=== PATIENT | male | born 1940 | race Caucasian/White ===

== ENCOUNTER 2018-03-09 07:29 | Outpatient (CLI) | payer MEDICARE, OTHER | END 2018-03-09 07:30 | disposition critical access hospital (66) | LOC: EMS 07:29 | PROVIDERS: ATTEND Surgery | DX: R06.00 Dyspnea, unspecified (principal); R51 Headache; R42 Dizziness and giddiness | CPT/HCPCS: A0425; A0429 ==

== ENCOUNTER 2018-03-09 07:57 | Emergency (ER) | payer MEDICARE, OTHER ==
--- NOTE | 2018-03-09 09:41 | ED Physician Documentation ---
PD HPI DYSPNEA - Stated complaint Stated Complaint: SOA - Chief complaint Chief Complaint: Resp - History obtained from History obtained from: Patient, EMS - History of Present Illness Timing - onset: Today Improved by: O2 Similar symptoms before: Has not had sx before - Treatment prior to arrival Treatment prior to arrival: Medics administered high flow oxygen by face mask. - Additional information Additional information: The patient is a 77-year-old male who presents via ambulance after carbon monoxide exposure this morning. With electricity being out, he was running a generator inside his garage. Although he had the garage door open the exhaust was apparently getting into his house. This morning he began feeling dizzy, short of breath, and felt like blacking out. He called his daughter, who called 911. Medics found the patient to have a high carbon monoxide level of 35%. They placed him on high flow oxygen by nonrebreather facemask, and by the time of his arrival in the emergency department his carboxyhemoglobin measurement is down to 16%. The patient already feels subjectively much improved. He denies headache or nausea. Review of Systems Constitutional: denies: Fever Eyes: denies: Decreased vision Nose: denies: Congestion Throat: denies: Sore throat Cardiac: denies: Chest pain / pressure Respiratory: denies: Cough GI: denies: Abdominal Pain, Nausea, Vomiting Skin: denies: Rash Musculoskeletal: denies: Extremity pain Neurologic: denies: Focal weakness, Numbness, Headache PD PAST MEDICAL HISTORY - Past Medical History Cardiovascular: Hypertension, Atrial fibrillation Respiratory: Pneumonia Endocrine/Autoimmune: None GI: Colon polyps : None HEENT: None Psych: Claustrophobia Musculoskeletal: Osteoarthritis Derm: None - Past Surgical History Past Surgical History: Yes General: Colonoscopy Ortho: Hip replacement, ACL reconstruction, Arthroscopic surgery, Carpal Tunnel surgery - Present Medications Home Medications: Ambulatory Orders Medication Instructions Recorded Confirmed Aspirin [Children's Aspirin] 09/21/12 09/21/12 - Allergies Allergies/Adverse Reactions: Allergies Allergy/AdvReac Type Severity Reaction Status Date / Time No Known Drug Allergies Allergy Verified 03/09/18 08:07 - Social History Does the pt smoke?: No Smoking Status: Former smoker Does the pt drink ETOH?: No Does the pt have substance abuse?: No - Immunizations Immunizations are current?: Yes - POLST Patient has POLST: No PD ED PE NORMAL - Vitals Vital signs reviewed: Yes (initially hypertensive.) - General General: Alert and oriented X 3, Well developed/nourished - HEENT HEENT: Atraumatic, EOMI, Pharynx benign - Neck Neck: Supple, no meningeal sign, No adenopathy, No JVD - Cardiac Cardiac: RRR, No murmur - Respiratory Respiratory: No respiratory distress, Clear bilaterally - Abdomen Abdomen: Soft, Non tender - Back Back: No CVA TTP - Derm Derm: No rash - Extremities Extremities: No edema, No calf tenderness / cord - Neuro Neuro: Alert and oriented X 3, No motor deficit, No sensory deficit Results - Vitals Vitals: Oxygen O2 Source Room air - Labs Labs: Laboratory Tests 03/09/18 09:11 VBG Total Hgb 15.6 VBG Oxyhemoglobin 67 L VBG Carboxyhemoglobin 14.6 H VBG Methemoglobin 0.0 PD MEDICAL DECISION MAKING - ED course Complexity details: reviewed results, re-evaluated patient, considered differential, d/w patient, d/w family ED course: The patient's presentation is most consistent with carbon monoxide exposure. Hispresentationthereisnoclinicalindicationforhyperbaricoxygentreatment.Treatmentintheemergencydepartmentincludedadministrationofhighflowoxygenbynonrebre atherfacemask, for a period of nearly 2 hours. Carboxyhemoglobin level measured on venous blood gas is elevated at 14.6, which is significantly improved from the initial measurement obtained by paramedics, and is below the 20% threshold that would warn consideration of hyperbaric oxygen therapy. I discussed with him and his family potentially worrisome signs or symptoms that should prompt reevaluation in the emergency department. Departure - Departure Disposition: 01 Home, Self Care Clinical Impression: Carbon monoxide poisoning Qualifiers: Encounter type: initial encounter Injury intent: accidental or unintentional Qualified Code(s): T58.91XA - Toxic effect of carbon monoxide from unspecified source, accidental (unintentional), initial encounter Condition: Stable Instructions: ED CO Poisoning Follow-Up: Albert Jeffers MD [Primary Care Provider] - Comments: Avoid running or generator in an posed space. Return to the emergency department if you develop increasing headache, persistent nausea or vomiting, or otherwise worsening symptoms. Discharge Date/Time: 03/09/18 09:55
[2018-03-09 11:59] VITALS: BP 127/72
== END 2018-03-09 09:55 | disposition home or self-care (01) ==
LOC: EDUNIT# → ED 07:57
DX: T58.8X1A Toxic effect of carbon monoxide from other source, accidental (unintentional), initial encounter (principal); R55 Syncope and collapse; R42 Dizziness and giddiness; R06.02 Shortness of breath; Y92.008 Other place in unspecified non-institutional (private) residence as the place of occurrence of the external cause; I10 Essential (primary) hypertension; Z86.79 Personal history of other diseases of the circulatory system
CPT/HCPCS: 36415; 82375; 99283

== ENCOUNTER 2020-05-06 08:00 | Outpatient (CLI) | payer MEDICARE, OTHER ==
[2020-05-06 18:21] LABS: BASOPHILS % (AUTO) 0.4 %; EOSINOPHILS # (AUTO) 0.1 10^3/uL (0.0-0.7); EOSINOPHILS % (AUTO) 1.9 %; HGB - HEMOGLOBIN 14.3 g/dL (14.0-18.0); LYMPHOCYTES # (AUTO) 1.5 10^3/uL (1.5-3.5); LYMPHOCYTES % (AUTO) 21.8 %; MEAN CORPUSCULAR HEMOGLOBIN 29.9 pg (27.0-31.0); MEAN CORPUSCULAR HGB CONC 31.5 g/dL (32.0-36.0); MEAN CORPUSCULAR VOLUME 94.8 fL (80.0-94.0); MEAN PLATELET VOLUME 10.6 fL (7.4-11.4); MONOCYTES # (AUTO) 0.6 10^3/uL (0.0-1.0); MONOCYTES % (AUTO) 8.3 %; NEUTROPHILS # (AUTO) 4.6 10^3/uL (1.5-6.6); NEUTROPHILS % (AUTO) 67.3 %; PLT - PLATELET COUNT 184 10^3/uL (130-450); RED BLOOD COUNT 4.79 10^6/uL (4.70-6.10); RED CELL DISTRIBUTION WIDTH 14.7 % (12.0-15.0); WHITE BLOOD COUNT 6.8 x10^3/uL (4.8-10.8)
[2020-05-06 18:39] LABS: ALBUMIN 4.5 g/dL (3.2-5.5); ALBUMIN/GLOBULIN RATIO 1.3 (1.0-2.2); ALKALINE PHOSPHATASE 65 IU/L (42-121); ALT ALANINE AMINOTRANSFERASE 15 IU/L (10-60); AST ASPARTATE AMINOTRANSFERASE 15 IU/L (10-42); BILIRUBIN,TOTAL 1.2 mg/dL (0.2-1.0); BUN - BLOOD UREA NITROGEN 26 mg/dL (6-20); CALCIUM 9.5 mg/dL (8.5-10.3); CARBON DIOXIDE - CO2 23 mmol/L (21-32); CHLORIDE 102 mmol/L (101-111); CHOL/HDL RATIO 4.6 (<5.0); CHOLESTEROL 185 mg/dL; CREATININE 1.3 mg/dL (0.6-1.2); GLUCOSE 122 mg/dL (70-100); HDL CHOLESTEROL 40 mg/dL; LDL CHOLESTEROL,CALCULATED 111 mg/dL; LDL/HDL RATIO 2.8 (<3.6); TOTAL PROTEIN 7.9 g/dL (6.7-8.2); VLDL CHOLESTEROL 34 mg/dL
== END 2020-05-06 23:59 | disposition home or self-care (01) ==
LOC: LAB.WCP 08:00
PROVIDERS: ATTEND Internal Medicine
DX: I10 Essential (primary) hypertension (principal); I49.9 Cardiac arrhythmia, unspecified; Z12.5 Encounter for screening for malignant neoplasm of prostate; J45.909 Unspecified asthma, uncomplicated
CPT/HCPCS: 36415; 80053; 80061; 84443; 85025; G0103; 83721; 84153

== ENCOUNTER 2020-08-10 08:00 | Outpatient (CLI) | payer MEDICARE, OTHER ==
[2020-08-10 12:04] LABS: CREATININE,URINE 179.6 mg/dL; MICROALBUM/CREATININE RATIO,UR 30.1 ug/mg (<30.0); MICROALBUMIN,URINE 5.4 mg/dL (0-300.0)
[2020-08-10 12:36] LABS: BUN - BLOOD UREA NITROGEN 32 mg/dL (6-20); CALCIUM 9.2 mg/dL (8.5-10.3); CARBON DIOXIDE - CO2 25 mmol/L (21-32); CHLORIDE 104 mmol/L (101-111); CHOL/HDL RATIO 4.7 (<5.0); CHOLESTEROL 174 mg/dL; CREATININE 1.4 mg/dL (0.6-1.2); GFR - MDRD 49 (>89); GLUCOSE 118 mg/dL (70-100); HDL CHOLESTEROL 37 mg/dL; LDL CHOLESTEROL,CALCULATED 116 mg/dL; LDL/HDL RATIO 3.1 (<3.6); POTASSIUM 4.6 mmol/L (3.5-5.0); SODIUM 136 mmol/L (135-145); TRIGLYCERIDES 105 mg/dL; VLDL CHOLESTEROL 21 mg/dL
[2020-08-10 12:45] LABS: PSA FREE 0.689 ng/mL (0.16-2.81)
[2020-08-10 12:46] LABS: PSA TOTAL 3.066 ng/mL (0.000-2.000)
[2020-08-10 12:59] LABS: ESTIMATED AVERAGE GLUCOSE 126 mg/dL (70-100)
== END 2020-08-10 23:59 | disposition home or self-care (01) ==
LOC: LAB.WCP 08:00
PROVIDERS: ATTEND Internal Medicine
DX: R73.01 Impaired fasting glucose (principal); R97.20 Elevated prostate specific antigen [PSA]; E78.5 Hyperlipidemia, unspecified
CPT/HCPCS: 36415; 80048; 80061; 82043; 82570; 83036; 83721; 84153; 84154

== ENCOUNTER 2021-03-27 08:51 | Outpatient (CLI) | payer MEDICARE, OTHER | END 2021-03-27 08:52 | disposition EMS.NT | LOC: EMS 08:51 | DX: R04.0 Epistaxis (principal) ==

== ENCOUNTER 2021-03-27 09:52 | Emergency (ER) | payer MEDICARE, OTHER ==
[2021-03-27] MEDS ORDERED: OXYMETAZOLINE HCL 100 SPRAYS BOTTLE NAS STA (10:15)
--- NOTE | 2021-03-27 10:15 | ED Physician Documentation ---
PD HPI HEENT - Stated complaint Stated Complaint: NOSE BLEED - Chief complaint Chief Complaint: Heent - History obtained from History obtained from: Patient - History of Present Illness Timing - onset: How many hours ago (2), Today Timing - duration: Hours (2) Timing - details: Abrupt onset, Waxing and waning Location: Nose (left side nare.) Associated symptoms: Other (denies blood thinners.). No: Fever, Congestion, Facial swelling, Headache Similar symptoms before: Has not had sx before Review of Systems Constitutional: denies: Fever, Chills Nose: denies: Rhinorrhea / runny nose, Congestion Throat: denies: Sore throat Respiratory: denies: Cough Endocrine: denies: Easy bruising / bleeding PD PAST MEDICAL HISTORY - Past Medical History Cardiovascular: Hypertension, Atrial fibrillation Respiratory: Pneumonia Endocrine/Autoimmune: None GI: Colon polyps : None HEENT: None Psych: Claustrophobia Musculoskeletal: Osteoarthritis Derm: None - Past Surgical History Past Surgical History: Yes General: Colonoscopy Ortho: Hip replacement, ACL reconstruction, Arthroscopic surgery, Carpal Tunnel surgery - Present Medications Home Medications: Ambulatory Orders Medication Instructions Recorded Confirmed Lisinopril [Zestril] 10 mg PO DAILY 03/27/21 03/27/21 - Allergies Allergies/Adverse Reactions: Allergies Allergy/AdvReac Type Severity Reaction Status Date / Time No Known Drug Allergies Allergy Verified 03/27/21 10:04 - Social History Does the pt smoke?: No Smoking Status: Former smoker Does the pt drink ETOH?: No Does the pt have substance abuse?: No - Immunizations Immunizations are current?: Yes - POLST Patient has POLST: No PD ED PE NORMAL - Vitals Vital signs reviewed: Yes - General General: Alert and oriented X 3, No acute distress, Well developed/nourished - HEENT HEENT: Other (right nare appears normal. left side with mainly normal mucosa with single point of raisde vessel and inflammation. Minimal bleeding right now. No erosions. ) - Neck Neck: Supple, no meningeal sign, No adenopathy Results - Vitals Vitals: Vital Signs - 24 hr 03/27/21 03/27/21 09:58 11:07 Temperature 36.5 C 36.5 C Heart Rate 76 74 Respiratory 16 16 Rate Blood Pressure 137/80 H 138/79 H O2 Saturation 99 99 Oxygen O2 Source Room air Procedures - Epistaxis Site: Left, Anterior Preparation: Afrin, Clamp / pressure applied Treatment: Silver Nitrate, Packing inserted Other: Observed - no bleeding, Pt tolerated well PD MEDICAL DECISION MAKING - ED course Complexity details: considered differential (nasal mucosa generally appears good, with just focal vessel inflammed left medial wall. ), d/w patient Departure - Departure Disposition: 01 Home, Self Care Clinical Impression: Acute anterior epistaxis Condition: Stable Record reviewed to determine appropriate education?: Yes Instructions: ED Nasal Packing Anterior Removable Comments: Leave the packing in the nostril through the day today and into tomorrow morning if tolerable. At that point you can gently remove it after moisturizing it and gently pulling out. If you have recurrent bleeding today, pinch the nose for 10 to 20 minutes and see if it stops. If still persisting, return to the ER. If no further bleeding and you are doing well after the packing removal, no particular follow-up is needed. Discharge Date/Time: 03/27/21 11:08
[2021-03-27] MEDS ORDERED: SILVER NITRATE APPLICATOR TOP STA (10:29)
[2021-03-27 11:08] VITALS: BP 138/79
== END 2021-03-27 11:08 | disposition home or self-care (01) ==
LOC: ED 09:52
DX: R04.0 Epistaxis (principal); Z87.891 Personal history of nicotine dependence
CPT/HCPCS: 30901; 99282; A9270

== ENCOUNTER 2021-08-02 11:02 | Outpatient (CLI) | payer MEDICARE, OTHER ==
[2021-08-02 18:17] LABS: BASOPHILS % (AUTO) 0.5 %; EOSINOPHILS # (AUTO) 0.1 10^3/uL (0.0-0.7); EOSINOPHILS % (AUTO) 1.8 %; HCT - HEMATOCRIT 46.8 % (42.0-52.0); LYMPHOCYTES # (AUTO) 1.8 10^3/uL (1.5-3.5); LYMPHOCYTES % (AUTO) 28.9 %; MEAN CORPUSCULAR HEMOGLOBIN 30.7 pg (27.0-31.0); MEAN CORPUSCULAR HGB CONC 32.1 g/dL (32.0-36.0); MEAN CORPUSCULAR VOLUME 95.7 fL (80.0-94.0); MEAN PLATELET VOLUME 11.2 fL (7.4-11.4); MONOCYTES # (AUTO) 0.6 10^3/uL (0.0-1.0); MONOCYTES % (AUTO) 10.6 %; NEUTROPHILS # (AUTO) 3.5 10^3/uL (1.5-6.6); NEUTROPHILS % (AUTO) 57.5 %; PLT - PLATELET COUNT 159 10^3/uL (130-450); RED BLOOD COUNT 4.89 10^6/uL (4.70-6.10); RED CELL DISTRIBUTION WIDTH 14.2 % (12.0-15.0); WHITE BLOOD COUNT 6.1 x10^3/uL (4.8-10.8)
[2021-08-02 18:35] LABS: CREATININE,URINE 113.1 mg/dL; MICROALBUM/CREATININE RATIO,UR 55.7 ug/mg (<30.0); MICROALBUMIN,URINE 6.3 mg/dL (0-300.0)
[2021-08-02 18:36] LABS: ALBUMIN 4.5 g/dL (3.2-5.5); ALBUMIN/GLOBULIN RATIO 1.4 (1.0-2.2); ALKALINE PHOSPHATASE 48 IU/L (42-121); ALT ALANINE AMINOTRANSFERASE 20 IU/L (10-60); AST ASPARTATE AMINOTRANSFERASE 18 IU/L (10-42); BILIRUBIN,TOTAL 0.8 mg/dL (0.2-1.0); BUN - BLOOD UREA NITROGEN 31 mg/dL (6-20); CALCIUM 9.4 mg/dL (8.5-10.3); CARBON DIOXIDE - CO2 25 mmol/L (21-32); CHLORIDE 102 mmol/L (101-111); CHOL/HDL RATIO 5.6 (<5.0); CHOLESTEROL 207 mg/dL; CREATININE 1.4 mg/dL (0.6-1.2); GFR - MDRD 49 (>89); GLUCOSE 115 mg/dL (70-100); HDL CHOLESTEROL 37 mg/dL; LDL CHOLESTEROL,CALCULATED 129 mg/dL; LDL/HDL RATIO 3.5 (<3.6); POTASSIUM 5.1 mmol/L (3.5-5.0); SODIUM 136 mmol/L (135-145); TOTAL PROTEIN 7.7 g/dL (6.7-8.2); TRIGLYCERIDES 205 mg/dL; VLDL CHOLESTEROL 41 mg/dL
[2021-08-02 18:46] LABS: THYROID STIMULATING HORMONE 2.14 uIU/mL (0.34-5.60)
[2021-08-02 20:15] LABS: ESTIMATED AVERAGE GLUCOSE 131 mg/dL (70-100); HEMOGLOBIN A1c% 6.2 % (4.27-6.07)
== END 2021-08-02 11:03 | disposition home or self-care (01) ==
LOC: LAB.N 11:02
PROVIDERS: ATTEND Internal Medicine
DX: I10 Essential (primary) hypertension (principal); E78.5 Hyperlipidemia, unspecified; R73.01 Impaired fasting glucose; R97.20 Elevated prostate specific antigen [PSA]; I49.9 Cardiac arrhythmia, unspecified
CPT/HCPCS: 36415; 80053; 80061; 82043; 82570; 83036; 83721; 84153; 84443; 85025

== ENCOUNTER 2022-01-31 10:04 | Outpatient (CLI) | payer MEDICARE, OTHER ==
[2022-01-31 12:43] LABS: BUN - BLOOD UREA NITROGEN 33 mg/dL (6-20); CALCIUM 9.4 mg/dL (8.5-10.3); CARBON DIOXIDE - CO2 27 mmol/L (21-32); CHLORIDE 102 mmol/L (101-111); CHOL/HDL RATIO 5.5 (<5.0); CHOLESTEROL 177 mg/dL; CREATININE 1.4 mg/dL (0.6-1.2); GFR - MDRD 49 (>89); GLUCOSE 116 mg/dL (70-100); HDL CHOLESTEROL 32 mg/dL; LDL CHOLESTEROL,CALCULATED 116 mg/dL; LDL/HDL RATIO 3.6 (<3.6); POTASSIUM 4.8 mmol/L (3.5-5.0); SODIUM 137 mmol/L (135-145); TRIGLYCERIDES 145 mg/dL; VLDL CHOLESTEROL 29 mg/dL
[2022-01-31 14:14] LABS: ESTIMATED AVERAGE GLUCOSE 140 mg/dL (70-100); HEMOGLOBIN A1c% 6.5 % (4.27-6.07)
== END 2022-01-31 10:05 | disposition home or self-care (01) ==
LOC: LAB.N 10:04
PROVIDERS: ATTEND Internal Medicine
DX: I10 Essential (primary) hypertension (principal); E78.5 Hyperlipidemia, unspecified; R73.01 Impaired fasting glucose
CPT/HCPCS: 36415; 80048; 80061; 83036; 83721

== ENCOUNTER 2022-06-05 07:30 | Emergency (ER) | payer MEDICARE, OTHER ==
[2022-06-05] MEDS ORDERED: OXYMETAZOLINE HCL 100 SPRAYS BOTTLE NAS STA (08:57)
[2022-06-05] MEDS ORDERED: SILVER NITRATE APPLICATOR TOP STA (09:20)
--- NOTE | 2022-06-05 09:58 | ED Physician Documentation ---
PD HPI HEENT - Stated complaint Stated Complaint: NOSE BLEED - Chief complaint Chief Complaint: Heent - History obtained from History obtained from: Patient, Family - Additional information Additional information: The patient comes to the emergency department chief complaint of nosebleed from left naris that started around 530 this morning. He states it lasted for 2 hours and finally stopped on its own, but he has had this problem a couple of other times in the last 7 years and they always cauterize his nose and that seems to take care of the problem. The patient denies any trauma. No recent u pper respiratory infection, coughing, or sneezing. No allergies. He denies any other complaints at this time. He is not on anticoagulants. PD PAST MEDICAL HISTORY - Past Medical History Cardiovascular: Hypertension, Atrial fibrillation Respiratory: Pneumonia Endocrine/Autoimmune: None GI: Colon polyps : None HEENT: None Psych: Claustrophobia Musculoskeletal: Osteoarthritis Derm: None - Past Surgical History Past Surgical History: Yes General: Colonoscopy Ortho: Hip replacement, ACL reconstruction, Arthroscopic surgery, Carpal Tunnel surgery - Present Medications Home Medications: Ambulatory Orders Medication Instructions Recorded Confirmed Lisinopril [Zestril] 10 mg PO DAILY 03/27/21 06/05/22 - Allergies Allergies/Adverse Reactions: Allergies Allergy/AdvReac Type Severity Reaction Status Date / Time No Known Drug Allergies Allergy Verified 03/27/21 10:04 - Social History Does the pt smoke?: No Smoking Status: Former smoker Does the pt drink ETOH?: No Does the pt have substance abuse?: No - Immunizations Immunizations are current?: Yes - POLST Patient has POLST: No PD ED PE NORMAL - Vitals Vital signs reviewed: Yes - General General: Alert and oriented X 3, No acute distress, Well developed/nourished - HEENT HEENT: Atraumatic, PERRL, EOMI, Moist mucous membranes, Other (No active epistaxis. Mild dried bloody residue in the left naris over the septum. Tiny excoriation noted over the septal mucosa.) - Neck Neck: Supple, no meningeal sign - Respiratory Respiratory: No respiratory distress - Derm Derm: Warm and dry - Extremities Extremities: No deformity - Neuro Neuro: Alert and oriented X 3 - Psych Psych: Normal mood, Normal affect Results - Vitals Vitals: Vital Signs - 24 hr 06/05/22 07:50 Temperature 36.7 C Heart Rate 68 Respiratory 18 Rate Blood Pressure 130/84 H O2 Saturation 98 Oxygen O2 Source Room air Procedures - Epistaxis - Minor Site: Left Preparation: Afrin Treatment: Silver Nitrate Other: Observed - no bleeding, Pt tolerated well, O2 sat WNL, Referred to ENT PD Medical Decision Making - ED course Complexity details: considered differential, d/w patient, d/w family ED course: The patient did not have any further bleeding in the emergency department, but given that he had responded well to cautery previously, I did go ahead and give him Afrin and then targeted cautery with silver nitrate. The patient tolerated this well and had no further bleeding. I have given him contact information for ENT and instructions to follow-up. We have discussed the usual indications for return. Departure - Departure Disposition: 01 Home, Self Care Clinical Impression: Epistaxis Condition: Stable Instructions: ED Nosebleed Follow-Up: Jose F Sherman MD [Physician No Access] - Comments: Your bleeding had already stopped by the time he came to the emergency department today, and has not restarted again. You have been given the generic equivalent of Afrin to help cinch up your blood vessels, and you have also been cauterized with silver nitrate. There is no active bleeding currently. It is very important that you avoid anything that could restart the bleeding or tear of the cauterized area, such as blowing your nose, coughing, dabbing, sneezing, or bending over with your head down. You should avoid these things for the next week while your nose heals. You may take the Afrin spray as needed if your nose starts bleeding again. Immediately following the spray, you should hold very firm pressure/pinching for a minimum of 10 minutes without letting go. If the bleeding stops, then you may leave the nose alone. Do not try putting anything in there. If the bleeding continues, you should return to the emergency department and we will likely need to pack your nose at that time. If you have repeated problems in this regard, you will need to follow-up with the ear nose throat specialist, and we have given you contact information for their clinic.
[2022-06-05 10:07] VITALS: BP 108/74
== END 2022-06-05 10:07 | disposition home or self-care (01) ==
LOC: ED 07:30
DX: R04.0 Epistaxis (principal); Z87.891 Personal history of nicotine dependence
CPT/HCPCS: 30901; 99282; 99283

== ENCOUNTER 2022-07-25 08:05 | Outpatient (CLI) | payer MEDICARE, OTHER ==
[2022-07-25 12:55] LABS: BASOPHILS % (AUTO) 0.5 %; EOSINOPHILS # (AUTO) 0.1 10^3/uL (0.0-0.7); EOSINOPHILS % (AUTO) 2.5 %; HGB - HEMOGLOBIN 14.3 g/dL (14.0-18.0); LYMPHOCYTES # (AUTO) 1.6 10^3/uL (1.5-3.5); LYMPHOCYTES % (AUTO) 27.9 %; MEAN CORPUSCULAR HEMOGLOBIN 30.8 pg (27.0-31.0); MEAN CORPUSCULAR HGB CONC 31.8 g/dL (32.0-36.0); MEAN CORPUSCULAR VOLUME 96.8 fL (80.0-94.0); MEAN PLATELET VOLUME 11.5 fL (7.4-11.4); MONOCYTES # (AUTO) 0.6 10^3/uL (0.0-1.0); MONOCYTES % (AUTO) 11.1 %; NEUTROPHILS # (AUTO) 3.3 10^3/uL (1.5-6.6); NEUTROPHILS % (AUTO) 57.5 %; PLT - PLATELET COUNT 162 10^3/uL (130-450); RED BLOOD COUNT 4.65 10^6/uL (4.70-6.10); RED CELL DISTRIBUTION WIDTH 14.6 % (12.0-15.0); WHITE BLOOD COUNT 5.7 x10^3/uL (4.8-10.8)
[2022-07-25 13:14] LABS: ALBUMIN/GLOBULIN RATIO 1.2 (1.0-2.2); ALKALINE PHOSPHATASE 52 IU/L (42-121); ALT ALANINE AMINOTRANSFERASE 18 IU/L (10-60); AST ASPARTATE AMINOTRANSFERASE 16 IU/L (10-42); BILIRUBIN,TOTAL 0.6 mg/dL (0.2-1.0); BUN - BLOOD UREA NITROGEN 39 mg/dL (6-20); CALCIUM 9.2 mg/dL (8.5-10.3); CARBON DIOXIDE - CO2 24 mmol/L (21-32); CHLORIDE 107 mmol/L (101-111); CHOL/HDL RATIO 4.6 (<5.0); CHOLESTEROL 175 mg/dL; CREATININE 1.6 mg/dL (0.6-1.2); GFR - MDRD 42 (>89); GLUCOSE 125 mg/dL (70-100); HDL CHOLESTEROL 38 mg/dL; LDL CHOLESTEROL,CALCULATED 106 mg/dL; LDL/HDL RATIO 2.8 (<3.6); POTASSIUM 4.8 mmol/L (3.5-5.0); SODIUM 139 mmol/L (135-145); TOTAL PROTEIN 7.3 g/dL (6.7-8.2); TRIGLYCERIDES 156 mg/dL; VLDL CHOLESTEROL 31 mg/dL
[2022-07-25 14:02] LABS: ESTIMATED AVERAGE GLUCOSE 131 mg/dL (70-100); HEMOGLOBIN A1c% 6.2 % (4.27-6.07)
[2022-07-25 17:55] LABS: CREATININE,URINE 116.8 mg/dL; MICROALBUM/CREATININE RATIO,UR 27.4 ug/mg (<30.0); MICROALBUMIN,URINE 3.2 mg/dL (0-300.0)
== END 2022-07-25 08:06 | disposition home or self-care (01) ==
LOC: LAB.N 08:05
PROVIDERS: ATTEND Internal Medicine
DX: I10 Essential (primary) hypertension (principal); E78.5 Hyperlipidemia, unspecified; R73.01 Impaired fasting glucose; R97.20 Elevated prostate specific antigen [PSA]
CPT/HCPCS: 36415; 80053; 80061; 82043; 82570; 83036; 83721; 84153; 85025

== ENCOUNTER 2023-01-17 09:09 | Outpatient (CLI) | payer MEDICARE, OTHER ==
[2023-01-17 12:29] LABS: ALBUMIN 4.4 g/dL (3.2-5.5); ALBUMIN/GLOBULIN RATIO 1.6 (1.0-2.2); BILIRUBIN,TOTAL 0.4 mg/dL (0.2-1.0); CALCIUM 9.3 mg/dL (8.5-10.3); CREATININE 1.5 mg/dL (0.6-1.3); POTASSIUM 4.8 mmol/L (3.5-4.5); TOTAL PROTEIN 7.1 g/dL (6.4-8.9)
[2023-01-17 12:48] LABS: ESTIMATED AVERAGE GLUCOSE 131 mg/dL (70-100); HEMOGLOBIN A1c% 6.2 % (4.27-6.07)
== END 2023-01-17 09:10 | disposition home or self-care (01) ==
LOC: LAB.N 09:09
PROVIDERS: ATTEND Internal Medicine
DX: R73.01 Impaired fasting glucose (principal)
CPT/HCPCS: 36415; 80053; 83036

== ENCOUNTER 2023-07-03 11:05 | Outpatient (CLI) | payer MEDICARE, OTHER ==
[2023-07-03 17:32] LABS: BASOPHILS % (AUTO) 0.5 %; EOSINOPHILS # (AUTO) 0.1 10^3/uL (0.0-0.7); EOSINOPHILS % (AUTO) 2.2 %; HCT - HEMATOCRIT 46.6 % (42.0-52.0); LYMPHOCYTES # (AUTO) 1.7 10^3/uL (1.5-3.5); LYMPHOCYTES % (AUTO) 28.5 %; MEAN CORPUSCULAR HEMOGLOBIN 30.5 pg (27.0-31.0); MEAN CORPUSCULAR HGB CONC 32.2 g/dL (32.0-36.0); MEAN CORPUSCULAR VOLUME 94.9 fL (80.0-94.0); MEAN PLATELET VOLUME 11.3 fL (7.4-11.4); MONOCYTES # (AUTO) 0.6 10^3/uL (0.0-1.0); MONOCYTES % (AUTO) 9.5 %; NEUTROPHILS # (AUTO) 3.4 10^3/uL (1.5-6.6); PLT - PLATELET COUNT 150 10^3/uL (130-450); RED BLOOD COUNT 4.91 10^6/uL (4.70-6.10); RED CELL DISTRIBUTION WIDTH 14.5 % (12.0-15.0); WHITE BLOOD COUNT 5.8 x10^3/uL (4.8-10.8)
[2023-07-03 17:53] LABS: ALBUMIN 4.3 g/dL (3.2-5.5); ALBUMIN/GLOBULIN RATIO 1.5 (1.0-2.2); ALKALINE PHOSPHATASE 55 IU/L (42-121); ALT ALANINE AMINOTRANSFERASE 15 IU/L (10-60); AST ASPARTATE AMINOTRANSFERASE 16 IU/L (10-42); BILIRUBIN,TOTAL 0.8 mg/dL (0.2-1.0); BUN - BLOOD UREA NITROGEN 27 mg/dL (6-20); CALCIUM 9.8 mg/dL (8.5-10.3); CARBON DIOXIDE - CO2 26 mmol/L (21-32); CHLORIDE 105 mmol/L (101-111); CHOL/HDL RATIO 5.1 (<5.0); CHOLESTEROL 187 mg/dL; CREATININE 1.3 mg/dL (0.6-1.3); GFR - MDRD 53 (>89); GLUCOSE 109 mg/dL (74-104); HDL CHOLESTEROL 37 mg/dL; LDL CHOLESTEROL,CALCULATED 112 mg/dL; POTASSIUM 4.6 mmol/L (3.5-4.5); SODIUM 138 mmol/L (135-145); TOTAL PROTEIN 7.1 g/dL (6.4-8.9); TRIGLYCERIDES 188 mg/dL (48-352); VLDL CHOLESTEROL 38 mg/dL
[2023-07-03 17:57] LABS: CREATININE,URINE 108.5 mg/dL; MICROALBUM/CREATININE RATIO,UR 92.2 ug/mg (<30.0)
[2023-07-03 18:06] LABS: ESTIMATED AVERAGE GLUCOSE 128 mg/dL (70-100); HEMOGLOBIN A1c% 6.1 % (4.27-6.07)
== END 2023-07-03 11:06 | disposition home or self-care (01) ==
LOC: LAB.N 11:05
PROVIDERS: ATTEND Internal Medicine
DX: E78.5 Hyperlipidemia, unspecified (principal); R73.03 Prediabetes; R97.20 Elevated prostate specific antigen [PSA]; I10 Essential (primary) hypertension
CPT/HCPCS: 36415; 80053; 80061; 82043; 82570; 83036; 83721; 84153; 85025